=== PATIENT | male | born 1995 | race Hispanic/Latino ===

== ENCOUNTER 2018-12-19 19:12 | Emergency (ER) | payer SELFPAY ==
[2018-12-19] MEDS ORDERED: TETANUS/DIPHTHERIA TOXOID [ADULT] 0.5 ML VIAL IM ONE (20:04)
== END 2018-12-19 20:20 | disposition home or self-care (01) ==
LOC: EDH 19:12
DX: S61.412A Laceration without foreign body of left hand, initial encounter (principal); X58.XXXA Exposure to other specified factors, initial encounter; Y93.89 Activity, other specified; Y92.098 Other place in other non-institutional residence as the place of occurrence of the external cause; Y99.8 Other external cause status
CPT/HCPCS: 12002; 73130; 90471; 90714